=== PATIENT | male | born 1970 | race Caucasian/White ===

== ENCOUNTER → 2017-04-12 | Emergency (ER) | payer BC ==
[~2017-04-12] MED LIST: ACETAMINOPHEN 325 MG TABLET (FP) ONE; ACETAMINOPHEN 325 MG TABLET (FP) PO ONE; KETOROLAC TROMETHAMINE 30 MG/1 ML VIAL IVPUSH ONE; ONDANSETRON 4 MG/2 ML VIAL IVPUSH ONE; ONDANSETRON 4 MG/2 ML VIAL ONE; SODIUM CHLORIDE 1,000 ML IV ONE; SODIUM CHLORIDE 1,000 ML IV STA
[2017-04-12 16:08] VITALS: BMI 31.4
--- NOTE | 2017-04-12 16:22 | PDOC ---
History of Present Illness - General Chief Complaint: Pain, Acute Stated Complaint: FEVER, VOMITING Time Seen by Provider: 04/12/17 16:11 - History of Present Illness Initial Comments: 04/12/17 16:45 Patient is a 47 year old male with a history of HTN, DM, Stenting who presents with nausea and vomiting. The patient reports onset of nausea earlier this morning with 5 episodes of vomiting. He states that he was unable to tolerate PO intake with repeat nausea and vomiting. He reports associated body aches and fevers prompting his visit to the ED today. He reports that he felt previously healthy prior to this nausea and vomiting today. He denies SOB, chest pain, abdominal pain, or changes with bowel movements or urination. Past History - Past Medical History Allergies/Adverse Reactions: Allergies Allergy/AdvReac Type Severity Reaction Status Date / Time No Known Allergies Allergy Verified 04/12/17 16:03 Home Medications: Ambulatory Orders Amlodipine Besylate [Norvasc -] 2.5 mg PO DAILY 03/08/12 Clopidogrel Bisulfate [Plavix -] 75 mg PO DAILY 03/08/12 Glipizide 10 mg PO BID 03/08/12 Lisinopril [Prinivil] 10 mg PO DAILY 03/08/12 Metoprolol Tartrate [Lopressor -] 25 mg PO BID 03/08/12 Unobtainable Home Med List 0 dose .ROUTE UTDICT 03/08/12 Aspirin [ASA -] 81 mg PO DAILY #1 tab.chew 03/09/12 Simvastatin [Zocor -] 20 mg PO HS #0 tablet 03/09/12 Ondansetron HCl [Zofran] 8 mg PO Q8H PRN #14 tablet 04/12/17 Anemia: No Asthma: No Cancer: No Cardiac Disorders: Yes (4 stents) CVA: No COPD: No CHF: No Dementia: No Diabetes: Yes GI Disorders: No Disorders: No HTN: No Hypercholesterolemia: Yes Liver Disease: No Seizures: No Thyroid Disease: No - Surgical History Abdominal Surgery: No Appendectomy: No Cardiac Surgery: Yes (STENTS 2011) Cholecystectomy: No Lung Surgery: No Neurologic Surgery: No Orthopedic Surgery: No - Family Disease History Family Disease History: Diabetes: Father, Heart Disease: Father - Psycho/Social/Smoking Cessation Hx Anxiety: No Suicidal Ideation: No Smoking Status: No Smoking History: Never smoked Have you smoked in the past 12 months: No Number of Cigarettes Smoked Daily: 0 Hx Alcohol Use: No Drug/Substance Use Hx: No Substance Use Type: None Hx Substance Use Treatment: No Review of Systems - Review of Systems Constitutional: Yes: Fever. No: Chills Respiratory: No: Cough, Shortness of Breath Cardiac (ROS): No: Chest Pain, Palpitations, Chest Tightness ABD/GI: Yes: Nausea, Vomiting. No: Constipated, Diarrhea : No: Burning, Dysuria, Pain Musculoskeletal: Yes: Back Pain Integumentary: No: Rash Neurological: Yes: Headache. No: Numbness, Tingling *Physical Exam - Vital Signs Last Vital Signs Temp Pulse Resp BP Pulse Ox 99.8 F H 128 H 19 127/80 97 04/12/17 16:04 04/12/17 16:04 04/12/17 16:04 04/12/17 16:04 04/12/17 16:04 - Physical Exam Comments: 04/12/17 16:55 General Appearance: Nourished. No Apparent Distress HEENT: No Pharyngeal Erythema, Tonsillar Exudate, Tonsillar Erythema Respiratory/Chest: Lungs Clear, Normal Breath Sounds. No Crackles, Rales, Rhonchi, Wheezing Cardiovascular: Regular Rhythm, Regular Rate. No Murmur, Gallop/S3, Gallop/S4 Gastrointestinal/Abdominal: Normal Bowel Sounds, Soft, Tenderness to palpation in the lower left quadrant. No Guarding, Rebound Musculoskeletal: No CVA Tenderness Extremity: Normal Capillary Refill Integumentary: Normal Color, Dry, Warm Neurologic: Fully Oriented, Alert, Normal Mood/Affect, Normal Response Heart Score/ECG Review #1 ECG reviewed & interpreted by me at: 17:08 General ECG Interpretation: Sinus Rhythm, Normal Rate, Normal Intervals, No acute ischemic changes ED Treatment Course - LABORATORY CBC & Chemistry Diagram: 04/12/17 16:48 04/12/17 16:48 Medical Decision Making - Medical Decision Making 04/12/17 16:59 Patient is a 47 year old male with a history of HTN, DM, Stenting who presents with nausea, vomiting. Differential includes but is not limited to: Diverticulitis, Pancreatitis, Gastroenteritis, UTI. Given his history and physical exam, it is likely his symptoms are due to a viral gastritis. However it is reasonable to evaluate for other etiologies of his symptoms. We will obtain a cbc, cmp, lipase, lactate, UA, and EKG to evaluate. 04/12/17 20:39 CBC, CMP, Lipase, EKG, and UA are unremarkable. Lactate was elevated to 3.3 likely due to dehydration. We will give the patient another fluid bolus and recheck his lactate. 04/12/17 20:40 Patient's lactate is improving to 2.5 with fluids. Patient reports an improvement in his symptoms and is requesting discharge. We will PO challenge the patient and reevaluate. 04/12/17 20:49 Patient reports improvement and is requesting discharge. We discussed all the results with the patient and feel comfortable discharging the patient after a vital signs recheck. The patient is agreeable with the plan. *DC/Admit/Observation/Transfer Diagnosis at time of Disposition: Viral gastritis - Discharge Dispostion Disposition: HOME Condition at time of disposition: Improved Admit: No - Prescriptions Prescriptions: Ondansetron HCl [Zofran] 8 mg PO Q8H PRN #14 tablet PRN Reason: Nausea - Referrals Referrals: Derrek Young MD [Primary Care Provider] - - Patient Instructions Printed Discharge Instructions: DI for Viral Gastroenteritis -- Adult Additional Instructions: Please return to the ER if you experience concerning or worsening symptoms including worsening fevers, chills, or bloody stools. Please call to follow up with your primary care provider to discuss your ER visit. We will send you home with a prescription for a anti-nausea medication. - Attestations Physician Attestion: 04/12/17 20:49 I, Dr. Isidro Powell, attest that this document has been prepared under my direction and personally reviewed by me in its entirety. I further attest, that it accurately reflects all work, treatment, procedures and medical decision -making performed by me.
--- NOTE | 2017-04-12 16:38 | PDOC ---
Attending Attestation - Resident Resident Name: Isidro Powell - ED Attending Attestation I have performed the following: I have examined & evaluated the patient, The case was reviewed & discussed with the resident, I agree w/resident's findings & plan, Exceptions are as noted - HPI HPI: 04/12/17 16:38 47y M hx of htn, hl, cad s/p 4 stents presents with 1 day of nausea/vomiting that is of food contents associated with subjective fever/chills w/o associated diarrhea, abd pain, cp, sob, dysuria. no known sick contacts or travel. pt had pizza last night but no one else is sick as far as he knows. pts vitals noted for tachyardia and fever GENERAL: The patient is awake, alert, and fully oriented, Nontoxic - in no acute distress. HEAD: Normocephalic, atraumatic. EYES: extraocular movements intact, sclera anicteric, conjunctiva clear. ENT: Normal voice, dry mucous membranes. NECK: Normal range of motion, supple LUNGS: Breath sounds equal, clear to auscultation bilaterally. No wheezes, no rhonchi, no rales. HEART: tachycardia ABDOMEN: Soft, nontender, normoactive bowel sounds. No guarding, no rebound. . No CVA tenderness EXTREMITIES: Normal range of motion, no edema. No clubbing or cyanosis. No cords, erythema, or tenderness. NEUROLOGICAL: No facial assymetry, Normal speech, PSYCH: Normal mood, normal affect. SKIN: Warm, Dry, normal turgor, suspect AGE, consider psosible appendicits/diverticulitis, but no significant tenderness will obtain labs, UA, will hydrate will give zofran will reassess 04/12/17 18:57 pts labs reviewed noted for mild elevation o flipase, however symptoms are atypical of pancreatitis. pts lactic acid elevated to 3.3 will continue hydration and reassess lactic acid 04/12/17 20:47 repeat lactic acid 2.5, trending lower pt feelin gimproved able to tolerate oral intake will dc the pt with pmd fu and retur nprecautions repeat vitals normalized - Physicial Exam PE: 04/13/17 02:22 see above - Medical Decision Making 04/13/17 02:22 see above Heart Score/ECG Review - ECG Impressions Comment:: 04/12/17 17:54 Twelve-lead EKG was performed and reviewed by me. There is normal sinus rhythm with a Rate of 105 Incomplete right bundle-branch block There is normal R wave progression There are no ST or T wave abnormalities.
[2017-04-12 17:02] LABS: MCH 29.5 pg (25.7-33.7); MCHC 34.4 g/dl (32.0-35.9); MEAN CELL VOLUME 85.8 fl (80-96); MEAN PLT VOLUME 9.7 fl (7.5-11.1); PLATELET COUNT 133 K/MM3 (134-434); RDW 13.2 % (11.9-15.9); WHITE BLOOD COUNT 9.4 K/mm3 (4.0-10.0)
[2017-04-12 17:04] LABS: URINE APPEARANCE CLEAR; URINE BILIRUBIN NEGATIVE (NEGATIVE); URINE BLOOD NEGATIVE (NEGATIVE); URINE COLOR STRAW; URINE GLUCOSE (UA) 3+ (NEGATIVE); URINE KETONE 1+ (NEGATIVE); URINE LEUK ESTERASE NEGATIVE (NEGATIVE); URINE NITRITE NEGATIVE (NEGATIVE); URINE PROTEIN NEGATIVE (NEGATIVE); URINE UROBILINOGEN NEGATIVE mg/dL (0.2-1.0)
[2017-04-12 17:30] LABS: ALBUMIN 4.5 g/dl (3.4-5.0); ALK PHOS 60 U/L (45-117); ANION GAP 15 (8-16); CALCIUM 9.4 mg/dL (8.5-10.1); CO2 25 mmol/L (21-32); CREATININE 0.9 mg/dL (0.7-1.3); GLUCOSE,RANDOM 237 mg/dL (74-106); SGOT/AST 36 U/L (15-37); SGPT/ALT 78 U/L (12-78); TOT PROT 7.9 g/dl (6.4-8.2)
[2017-04-12 19:48] LABS: PLATELET ESTIMATE DECREASED (NORMAL)
[2017-04-12 21:05] VITALS: BP 119/75; PULSE 83; TEMP 98.4
--- NOTE | 2017-04-13 13:29 | EKG ---
Test Reason : Blood Pressure : / mmHG Vent. Rate : 105 BPM Atrial Rate : 105 BPM P-R Int : 138 ms QRS Dur : 094 ms QT Int : 334 ms P-R-T Axes : 021 -19 008 degrees QTc Int : 441 ms SINUS TACHYCARDIA INCOMPLETE RIGHT BUNDLE BRANCH BLOCK BORDERLINE ECG WHEN COMPARED WITH ECG OF 08-MAR-2012 10:46, INCOMPLETE RIGHT BUNDLE BRANCH BLOCK IS NOW PRESENT CLINICAL CORRELATION IS RECOMMENDED Confirmed by ALEX SALGADO, ANDRES ([id number]) on 04/13/2017 1:28:59 PM Referred By: Confirmed By:ANDRES JOHNSON MD
== END | disposition home or self-care (01) ==
LOC: JER 15:50
PROC: 3E0333Z Introduction of Anti-inflammatory into Peripheral Vein, Percutaneous Approach (ICD-10-PCS; principal; 2017-04-12)
PROC: 3E033GC Introduction of Other Therapeutic Substance into Peripheral Vein, Percutaneous Approach (ICD-10-PCS; 2017-04-12)
PROC: 3E0337Z Introduction of Electrolytic and Water Balance Substance into Peripheral Vein, Percutaneous Approach (ICD-10-PCS; 2017-04-12)
DX: A08.4 Viral intestinal infection, unspecified (principal); I10 Essential (primary) hypertension; E11.9 Type 2 diabetes mellitus without complications; E78.00 Pure hypercholesterolemia, unspecified; Z79.82 Long term (current) use of aspirin; Z95.5 Presence of coronary angioplasty implant and graft
CPT/HCPCS: 36415; 80053; 81003; 83605; 83690; 85025; 87040; 93005; 93010; 99283-25

== ENCOUNTER 2017-05-28 14:22 | Emergency (ER) | payer BC ==
[2017-05-28 14:38] VITALS: TEMP 97.5; BMI 32.1
--- NOTE | 2017-05-28 14:43 | PDOC ---
History of Present Illness - General Chief Complaint: Chest Pain Stated Complaint: CHEST PAIN Time Seen by Provider: 05/28/17 14:42 - History of Present Illness Initial Comments: 05/28/17 14:43 Mr. Andrade is a 47 yo male with a significant past medical history of DM, HTN, and 4 stents who presents to the emergency department with chest pain, head feeling "swollen," and dehydrated feeling after using 3gm of cocaine last night. He reports that he hasn't done this in a long time and that he realizes it was a bad idea. Says that he has no plains to use again. The patient denies shortness of breath and dizziness. Denies fever, chills, nausea, vomit, diarrhea and constipation. Denies dysuria, frequency, urgency and hematuria. Allergies: NKDA Past surgical history: 4 stents PMD - Young Past History - Past Medical History Allergies/Adverse Reactions: Allergies Allergy/AdvReac Type Severity Reaction Status Date / Time No Known Allergies Allergy Verified 05/28/17 14:35 Home Medications: Ambulatory Orders Amlodipine Besylate [Norvasc -] 2.5 mg PO DAILY 03/08/12 Clopidogrel Bisulfate [Plavix -] 75 mg PO DAILY 03/08/12 Glipizide 10 mg PO BID 03/08/12 Lisinopril [Prinivil] 10 mg PO DAILY 03/08/12 Metoprolol Tartrate [Lopressor -] 25 mg PO BID 03/08/12 Aspirin [ASA -] 81 mg PO DAILY #1 tab.chew 03/09/12 Simvastatin [Zocor -] 20 mg PO HS #0 tablet 03/09/12 Anemia: No Asthma: No Cancer: No Cardiac Disorders: Yes (4 stents) CVA: No COPD: No CHF: No Dementia: No Diabetes: Yes GI Disorders: No Disorders: No HTN: No Hypercholesterolemia: Yes Liver Disease: No Seizures: No Thyroid Disease: No - Surgical History Abdominal Surgery: No Appendectomy: No Cardiac Surgery: Yes (2011) Cholecystectomy: No Lung Surgery: No Neurologic Surgery: No Orthopedic Surgery: No - Family Disease History Family Disease History: Diabetes: Father, Heart Disease: Father - Suicide/Smoking/Psychosocial Hx Smoking Status: No Smoking History: Never smoked Have you smoked in the past 12 months: No Number of Cigarettes Smoked Daily: 0 Hx Alcohol Use: No Drug/Substance Use Hx: No Substance Use Type: None Hx Substance Use Treatment: No Review of Systems - Review of Systems Comments:: 05/28/17 14:43 GENERAL/CONSTITUTIONAL: No fever or chills. No weakness. HEAD, EYES, EARS, NOSE AND THROAT: +Headache with "swollen" feeling. No change in vision. No ear pain or discharge. No sore throat. CARDIOVASCULAR: +Sternal chest tightness reported. No shortness of breath RESPIRATORY: No cough, wheezing, or hemoptysis. GASTROINTESTINAL: No nausea, vomiting, diarrhea or constipation. GENITOURINARY: No dysuria, frequency, or change in urination. MUSCULOSKELETAL: No joint or muscle swelling or pain. No neck or back pain. SKIN: No rash NEUROLOGIC: No headache, vertigo, loss of consciousness, or change in strength/ sensation. ENDOCRINE: No increased thirst. No abnormal weight change HEMATOLOGIC/LYMPHATIC: No anemia, easy bleeding, or history of blood clots. ALLERGIC/IMMUNOLOGIC: No hives or skin allergy. *Physical Exam - Vital Signs Last Vital Signs Temp Pulse Resp BP Pulse Ox 97.5 F L 125 H 20 158/89 100 05/28/17 14:35 05/28/17 14:35 05/28/17 14:35 05/28/17 14:35 05/28/17 14:35 - Physical Exam Comments: 05/28/17 14:43 GENERAL: Awake, alert, and fully oriented, in no acute distress HEAD: No signs of trauma, normocephalic, atraumatic EYES: PERRLA, EOMI, sclera anicteric, conjunctiva clear ENT: Auricles normal inspection, hearing grossly normal, nares patent, oropharynx clear without exudates. Moist mucosa NECK: Normal ROM, supple, no lymphadenopathy, JVD, or masses LUNGS: No distress, speaks full sentences, clear to auscultation bilaterally HEART: Regular rate and rhythm, normal S1 and S2, no murmurs, rubs or gallops, peripheral pulses normal and equal bilaterally. ABDOMEN: Soft, nontender, normoactive bowel sounds. No guarding, no rebound. No masses EXTREMITIES: Normal inspection, Normal range of motion, no edema. No clubbing or cyanosis. NEUROLOGICAL: Cranial nerves II through XII grossly intact. Normal speech, normal gait, no focal sensorimotor deficits SKIN: Warm, Dry, normal turgor, no rashes or lesions noted. ED Treatment Course - LABORATORY CBC & Chemistry Diagram: 05/28/17 14:50 05/28/17 14:50 Medical Decision Making - Medical Decision Making 05/28/17 17:32 Patient resting comfortably after 1 L saline, says symptoms have abated. EKG/ cardiac labs/CMP/CBC as below. Discussed case with PCP Dr. Young who is comfortable with Mr. Andrade returning home with cardiac follow-up. Will D/C for home care. *DC/Admit/Observation/Transfer Diagnosis at time of Disposition: Cocaine abuse - Discharge Dispostion Disposition: HOME - Patient Instructions Printed Discharge Instructions: DI for Atypical Chest Pain
[2017-05-28] MEDS ORDERED: SODIUM CHLORIDE 1,000 ML IV STA (14:52)
--- NOTE | 2017-05-28 15:12 | PDOC ---
Attending Attestation - Resident Resident Name: Tremaine Green - ED Attending Attestation I have performed the following: I have examined & evaluated the patient, The case was reviewed & discussed with the resident, I agree w/resident's findings & plan, Exceptions are as noted - HPI HPI: 05/28/17 15:10 Cocaine Induced Chest Pain - Physicial Exam PE: VSS NAD - Medical Decision Making 05/28/17 15:[address] Green's Assessment and Plan
[2017-05-28 15:14] LABS: BASOPHIL 0.7 % (0-2.0); EOSINOPHIL 0.1 % (0-4.5); MCH 29.7 pg (25.7-33.7); MCHC 34.4 g/dl (32.0-35.9); MEAN CELL VOLUME 86.2 fl (80-96); MEAN PLT VOLUME 9.3 fl (7.5-11.1); NEUTROPHILS 76.6 % (42.8-82.8); PLATELET COUNT 159 K/MM3 (134-434); RDW 13.3 % (11.9-15.9); WHITE BLOOD COUNT 8.5 K/mm3 (4.0-10.0)
[2017-05-28 15:40] LABS: ALBUMIN 5.1 g/dl (3.4-5.0); ANION GAP 12 (8-16); CALCIUM 9.7 mg/dL (8.5-10.1); CO2 28 mmol/L (21-32); CPK 187 IU/L (39-308); CREATININE 0.9 mg/dL (0.7-1.3); SGOT/AST 19 U/L (15-37); SGPT/ALT 60 U/L (12-78)
[2017-05-28 15:43] LABS: ALK PHOS 74 U/L (45-117); BILIRUBIN,TOTAL 1.1 mg/dL (0.2-1.0); TROPONIN I < 0.02 ng/ml (0.00-0.05)
[2017-05-28 15:56] VITALS: BP 102/66; PULSE 78
[2017-05-28 16:09] LABS: GLUCOSE,RANDOM 321 mg/dL (74-106)
--- NOTE | 2017-05-28 19:55 | EKG ---
Test Reason : Blood Pressure : / mmHG Vent. Rate : 099 BPM Atrial Rate : 099 BPM P-R Int : 130 ms QRS Dur : 098 ms QT Int : 344 ms P-R-T Axes : 039 -14 019 degrees QTc Int : 441 ms NORMAL SINUS RHYTHM RSR' IN V1 LEFT ATRIAL ENLARGEMENT WHEN COMPARED WITH ECG OF 12-APR-2017 16:55, NO SIGNIFICANT CHANGE WAS FOUND REPEAT EKG IF CLINICALLY INDICATED Confirmed by FLORESITA BRAGG MD ([id number]) on 05/28/2017 7:54:58 PM Referred By: Confirmed By:FLORESITA BRAGG MD
== END 2017-05-28 17:59 | disposition home or self-care (01) ==
LOC: JER 14:22
PROC: 3E0337Z Introduction of Electrolytic and Water Balance Substance into Peripheral Vein, Percutaneous Approach (ICD-10-PCS; principal; 2017-05-28)
DX: F14.10 Cocaine abuse, uncomplicated (principal); I10 Essential (primary) hypertension; Z95.5 Presence of coronary angioplasty implant and graft
CPT/HCPCS: 36415; 80053; 82553; 84484; 85025; 93005; 93010; 99283-25

== ENCOUNTER 2019-02-19 23:52 | Emergency (ER) | payer BC ==
[2019-02-20 00:09] VITALS: BMI 29.2
[2019-02-20] MEDS ORDERED: ASPIRIN 81 MG CHEWABLE TABLETS PO ONE (01:31)
[2019-02-20] MEDS ORDERED: ASPIRIN COATED 81 MG TABLET.EC ONE (01:38)
--- NOTE | 2019-02-20 01:41 | PDOC ---
History of Present Illness - General Chief Complaint: Chest Pain Stated Complaint: SOB/CHEST PAIN Time Seen by Provider: 02/20/19 00:30 History Source: Patient, Old Records Exam Limitations: No Limitations - History of Present Illness Initial Comments: HPI: 48 y/o male presenting to [facility] ER with a chief complaint of single episode of shortness of breath while lying down at approx. 10 pm. States it was uncomfortable to take a deep breath. Endorses concurrent palpitations without chest pain. Lasted approx. 20 minutes before resolving spontaneously. 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 Is attempting to self-detox with Suboxone purchased from the street. Today was the first day with this particular batch of Suboxone. Endorses taking both Percocet and Suboxone over the course of the day. Has a h/o of developing hypertension and tachycardia with taking Suboxone. Took home amlodipine dose tonight after developing the symptoms. 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 Denies LOC, nausea/vomiting, and/or retrograde/anterograde amnesia. Headache improved after taking 2x Excedrin around 10pm. PCP: Dr. Young Social Hx: - EtOH: Denies - Tobacco: Denies - Street drugs: denies Medical Hx: - CAD s/p 4x stenting - Diabetes (Janumet, Metformin, Glipizide) - HTN - HLD Review of Systems: In addition to that documented in the HPI above, the additional ROS was obtained : Constitutional: Denies fevers or chills Head: Denies vision changes ENMT: Denies sore throat CV: Denies chest pain Resp: Per HPI. Denies coughing or sneezing. GI: Endorses vomiting x2 this AM (NB,NB). Denies diarrhea : Denies painful urination MSK: Denies recent trauma Skin: Denies new rashes Neuro: Denies new numbness or tingling or weakness Endocrine: Denies polyuria Heme: Denies bleeding or bruising Physical Examination: Constitutional: Well-developed, well-nourished adult male in no acute distress or obvious discomfort. Found semi-fowlers on hospital bed. Alert and oriented x4. Answered all questions appropriately and completely. Speech was non-labored , non-pressured. Head: Normocephalic. No obvious external signs of trauma. No bleeding. No periorbital ecchymosis or Battles sign. Eyes: Pupils 3mm and PERRL bilaterally. EOMI. No nystagmus. Sclerae white. Conjunctiva moist and not injected. Ears: Hearing grossly intact. Nose: No nasal discharge. Throat: Oral cavity and pharynx normal. No inflammation, swelling, exudate, or lesions. Neck: Supple, trachea is midline. No c-spine Cardiovascular / Chest: Borderline tachycardic rate and regular rhythm. No murmur, rubs, clicks, or gallops. Peripheral pulses: radial pulses full. Respiratory: Breathing unlabored. Equal chest rise and fall. Clear to auscultation bilaterally. No stridor, no wheezing, no rhonchi. Gastrointestinal: abdomen is soft, non-tender, non-distended. Neuro: Alert and oriented. Moving all four extremities spontaneously. No focal deficits. Cranial nerves intact. Sensation to all four extremities intact. Upper and lower extremities: proximal and distal strength 5/5. Deep Well Contractor strength 5/ 5 - equal and symmetric. Plantar flexion and dorsiflexion 5/5. No nuchal rigidity. Intact finger to nose, rapid alternating movements, and heel to hernandez. Gait normal. Skin: Warm, dry, and intact. No bruising, rashes, or other lesions. Psych: Affect: appropriate. Mood: normal. MDM: *Reviewed vital signs, nursing notes, and prior visit documentation (if available). 48 y/o male presenting for an episode of palpitations and SOB while lying down. Self resolved. Occurred in setting of mixing Percocet and Soboxone as well as taking Excedrin. Denies chest pain. Asymptomatic at the time of interview. Afebrile. Vitals unremarkable for hypotension or tachycardia. Physical exam as described above. Suspect secondary to opiate withdrawal symptoms from mixing Percocet and Soboxone combined with caffeine surge from Excedrin combined with emotional anxiety. Low suspicion for ACS, arrhythmia, pneumonia, or other pulmonary pathology. Given cardiac history, will obtain EKG, CBC, CMP, Troponin , and CXR. Headache suspected to be secondary to striking head on beam. No concerning symptoms reported. Unremarkable neurologic exam. Low suspicion for acute intracranial injury. Will not pursue imaging. Discussed with patient. CBC unremarkable for anemia or leukocytosis. CMP unremarkable for electrolyte derangement. Initial EKG unremarkable for ischemic changes. Second EKG unchanged from initial. Initial and three hour troponin not elevated. CXR unremarkable for acute cardiopulmonary pathology per ED wet read. Formal radiology report pending. No arrhythmia noted on telemetry monitoring system while pt was in the department. Pt reassessed and reports no further symptoms. Continue to have very low suspicion for ACS even in setting of cardiac history. Pt stable for discharge. Discussed imaging and laboratory results with pt. Answered all questions. Provided return precautions. Pt expressed verbal understanding and agreement with plan to discharge home with outpatient PCP and cardiology follow up. Attached copies of EKGs and lab results. Norm Bentley M.D., PGY1 Emergency Medicine Resident Past History - Past Medical History Allergies/Adverse Reactions: Allergies Allergy/AdvReac Type Severity Reaction Status Date / Time No Known Allergies Allergy Verified 02/20/19 00:08 Home Medications: Ambulatory Orders Amlodipine Besylate [Norvasc -] 2.5 mg PO DAILY 03/08/12 Glipizide 10 mg PO BID 03/08/12 Lisinopril [Prinivil] 10 mg PO DAILY 03/08/12 Aspirin [ASA -] 81 mg PO DAILY #1 tab.chew 03/09/12 Simvastatin [Zocor -] 20 mg PO HS #0 tablet 03/09/12 Metformin HCl [Glucophage] 1,000 mg PO BID 02/20/19 [place]-3 Fatty Acids/Fish Oil [Fish Oil 1,000 mg Capsule] 1 each PO BID 02/20/19 Sitagliptin Phos/Metformin HCl [Janumet 50-1,000 mg Tablet] 1 each PO BID Anemia: No Asthma: No Cancer: No Cardiac Disorders: Yes (4 stents) CVA: No COPD: No CHF: No Dementia: No Diabetes: Yes GI Disorders: No Disorders: No HTN: No Hypercholesterolemia: Yes Liver Disease: No Seizures: No Thyroid Disease: No - Surgical History Abdominal Surgery: No Appendectomy: No Cardiac Surgery: Yes (STENTS 2011) Cholecystectomy: No Lung Surgery: No Neurologic Surgery: No Orthopedic Surgery: No - Family Disease History Family Disease History: Diabetes: Father, Heart Disease: Father - Suicide/Smoking/Psychosocial Hx Smoking Status: No Smoking History: Never smoked Have you smoked in the past 12 months: No Number of Cigarettes Smoked Daily: 0 Information on smoking cessation initiated: No Hx Alcohol Use: No Drug/Substance Use Hx: No Substance Use Type: None Hx Substance Use Treatment: No *Physical Exam - Vital Signs Last Vital Signs Temp Pulse Resp BP Pulse Ox 97.4 F L 120 H 20 178/90 H 99 02/20/19 00:08 02/20/19 00:08 02/20/19 00:08 02/20/19 00:08 02/20/19 00:08 Vital Signs - Vital Signs #1 Blood Pressure: 145/78 MAP: 100 Blood Pressure Position: Sitting Pulse Rate: 96 Respiratory Rate: 18 O2 Sat by Pulse Oximetry (%): 99 Oxygen Delivery Method: Room Air ED Treatment Course - LABORATORY CBC & Chemistry Diagram: 02/20/19 01:58 02/20/19 01:58 - RADIOLOGY Radiology Studies Ordered: Category Date Time Status CHEST PA & LAT [RAD] Stat Radiology 02/20/19 01:24 Ordered *DC/Admit/Observation/Transfer Diagnosis at time of Disposition: Palpitations, Shortness of breath, Opiate misuse - Discharge Dispostion Disposition: HOME Condition at time of disposition: Good Decision to Admit order: No - Referrals Referrals: Derrek Young MD [Primary Care Provider] - - Patient Instructions Printed Discharge Instructions: DI for Palpitations Additional Instructions: You were seen today for an episode of shortness of breath with heart racing after taking Percocet, Suboxone, and Excedrin. Your EKG, blood work, and chest xray were all normal. Your symptoms are likely secondary to the medications you took tonight. Do not take Suboxone with Percocet. Try to avoid excessive caffeine intake. You can take over the counter Tylenol or Advil as needed for pain. Take as directed on the package insert. Do not exceed the recommended dosage. You should follow up with your manager in home within the next 2-3 days. You will need to call to make an appointment. A copy of todays results are attached to this packet. Take it to the appointment so your doctor can review them. You should also follow up with your primary care doctor within the next 2-3 days. You will need to call to make an appointment. The number is included in this packet. A copy of todays results are attached to this packet. Take it to the appointment so your doctor can review them. Go to the nearest emergency department if your condition worsens or you feel like you need additional emergency evaluation. Print Language: BELARUSIAN - Post Discharge Activity Forms/Work/School Notes: Back to Work
[2019-02-20] MEDS ORDERED: LACTATED RINGERS SOLUTION 1000 ML INFUS.BAG IV ONE (01:42)
[2019-02-20 02:25] LABS: BASO % 0.5 % (0-2.0); EOS % 0.8 % (0-4.5); HEMATOCRIT 39.5 % (35.4-49); HEMOGLOBIN 13.6 GM/dL (11.7-16.9); LYMPH % 21.2 % (8-40); MCH 29.4 pg (25.7-33.7); MCHC 34.4 g/dl (32.0-35.9); MEAN CELL VOLUME 85.3 fl (80-96); MEAN PLT VOLUME 8.8 fl (7.5-11.1); MONO % 8.5 % (3.8-10.2); PLATELET COUNT 135 K/MM3 (134-434); RBC 4.63 M/mm3 (4.00-5.60); RDW 12.8 % (11.9-15.9); WHITE BLOOD COUNT 5.1 K/mm3 (4.0-10.0)
[2019-02-20 02:52] LABS: ALBUMIN 4.2 g/dl (3.4-5.0); BILIRUBIN,TOTAL 0.4 mg/dL (0.2-1); BLOOD UREA NITROGEN 14.5 mg/dL (7-18); CALCIUM 9.2 mg/dL (8.5-10.1); POTASSIUM 4.3 mmol/L (3.5-5.1)
--- NOTE | 2019-02-20 03:55 | PDOC ---
Documentation entered by Liana Chino SCRIBE, acting as scribe for Neftali Yepez MD. Neftali Yepez MD: This documentation has been prepared by the brodieibMatti elizabeth Lincy, SCRIBE, under my direction and personally reviewed by me in its entirety. I confirm that the documentation accurately reflects all work, treatment, procedures, and medical decision making performed by me. Attending Attestation - Resident Resident Name: Norm Bentley - ED Attending Attestation I have performed the following: I have examined & evaluated the patient, The case was reviewed & discussed with the resident, I agree w/resident's findings & plan, Exceptions are as noted - HPI HPI: 02/20/19 01:55 The patient is a 48 year old male with a past medical history significant for HTN, HLD, CAD s/p 4 stents, DM presents to the emergency department with palpitations and shortness of breath. The patient presents with a sesnation of shortness of breath, palpitations since 10:00 pm today. The patient reports he felt like his heat rate was going up and decided to be evaluated. Denies chest pain, palpitations or pain radiating. The patient reports he is trying to self regimen himself off non-prescribed Percocet with suboxone. The patient reports he took a percocet this morning, and in the evening he took a suboxone. He endorses that he struck his head this morning when he walked into an [employer] there was no LOC there was a mild headache he denies any nausea, vomiting, vision changes, numbness, tingling, weakness, neck pain. The patient denies any exertional shortness of breath or chest pain, cough, hemoptysis, leg swelling, orthopnea. The patient does endorse taking 2 Excedrin for his headache prior to the onset of his palpitations. Allergies: NKDA Social history: Percocet, cocaine. PCP: Dr. Young - Physicial Exam PE: 02/20/19 03:04 GENERAL: The patient is awake, alert, and fully oriented, Nontoxic - in no acute distress. HEAD: Normocephalic, atraumatic. EYES: extraocular movements intact, sclera anicteric, conjunctiva clear. ENT: Normal voice, Moist mucous membranes. NECK: Normal range of motion, supple LUNGS: Breath sounds equal, clear to auscultation bilaterally. No wheezes, no rhonchi, no rales. HEART: Regular rate and rhythm, normal S1 and S2 without murmur, rub or gallop. ABDOMEN: Soft, nontender, normoactive bowel sounds. No guarding, no rebound. . No CVA tenderness EXTREMITIES: Normal range of motion, no edema. No clubbing or cyanosis. No cords, erythema, or tenderness. NEUROLOGICAL: No facial assymetry, Normal speech, PSYCH: Normal mood, normal affect. SKIN: Warm, Dry, normal turgor, - Medical Decision Making 02/20/19 03:04 Suspect that his palpitations, shortness of breath may be secondary to his caffeine use from the Excedrin. She chest pain, dyspnea on exertion. The patient was mildly tachycardic on presentation however it normalized without any therapy. We'll obtain troponin 2 to screen for ACS due to significant cardiac history. His EKG is normal here Heart Score/ECG Review - ECG Impressions Comment:: 02/20/19 03:05 Twelve-lead EKG was performed and reviewed by me. ekg eperformed at 23:48 There is normal sinus rhythm with a normal rate. Rate of 109 incomplete rbbb
[2019-02-20 06:48] VITALS: BP 121/85; PULSE 74; TEMP 98.2
--- NOTE | 2019-02-20 13:33 | EKG ---
Test Reason : Blood Pressure : / mmHG Vent. Rate : 077 BPM Atrial Rate : 077 BPM P-R Int : 128 ms QRS Dur : 088 ms QT Int : 380 ms P-R-T Axes : 000 -14 -01 degrees QTc Int : 430 ms ECTOPIC ATRIAL RHYTHM POOR DATA QUALITY, INTERPRETATION MAY BE ADVERSELY AFFECTED Confirmed by DEVANTE FLORENCE MD ([id number]) on 02/20/2019 1:33:43 PM Referred By: Confirmed By:DEVANTE FLORENCE MD
--- NOTE | 2019-02-20 13:35 | EKG ---
Test Reason : Blood Pressure : / mmHG Vent. Rate : 094 BPM Atrial Rate : 094 BPM P-R Int : 118 ms QRS Dur : 092 ms QT Int : 354 ms P-R-T Axes : 242 -17 000 degrees QTc Int : 442 ms UNUSUAL P AXIS AND SHORT MT, PROBABLE JUNCTIONAL TACHYCARDIA MINIMAL VOLTAGE CRITERIA FOR LVH, MAY BE NORMAL VARIANT ABNORMAL ECG Confirmed by DEVANTE FLORENCE MD ([id number]) on 02/20/2019 1:35:06 PM Referred By: Confirmed By:DEVANTE FLORENCE MD
--- NOTE | 2019-02-24 10:38 | EKG ---
Test Reason : Blood Pressure : / mmHG Vent. Rate : 109 BPM Atrial Rate : 109 BPM P-R Int : 180 ms QRS Dur : 100 ms QT Int : 344 ms P-R-T Axes : 048 -03 044 degrees QTc Int : 463 ms SINUS TACHYCARDIA INCOMPLETE RIGHT BUNDLE BRANCH BLOCK BORDERLINE ECG WHEN COMPARED WITH ECG OF 28-MAY-2017 14:32, NO SIGNIFICANT CHANGE WAS FOUND Confirmed by Ariel Geiger MD ([id number]) on 02/24/2019 10:38:05 AM Referred By: Confirmed By:Ariel Geiger MD
== END 2019-02-20 06:28 | disposition home or self-care (01) ==
LOC: JER 23:52
PROC: 3E0337Z Introduction of Electrolytic and Water Balance Substance into Peripheral Vein, Percutaneous Approach (ICD-10-PCS; principal; 2019-02-19)
DX: R00.2 Palpitations (principal); F11.10 Opioid abuse, uncomplicated; I25.10 Atherosclerotic heart disease of native coronary artery without angina pectoris; I10 Essential (primary) hypertension; Z95.5 Presence of coronary angioplasty implant and graft; E11.9 Type 2 diabetes mellitus without complications; Z79.84 Long term (current) use of oral hypoglycemic drugs; E78.00 Pure hypercholesterolemia, unspecified
CPT/HCPCS: 36415; 71046-TC-FY; 80053; 82550; 82553; 84484; 85025; 93005; 93010; 99284-25

== ENCOUNTER 2019-05-22 21:50 | Emergency (ER) | payer BC ==
--- NOTE | 2019-05-22 21:55 | PDOC ---
Rapid Medical Evaluation Medical Evaluation: Allergies Allergy/AdvReac Type Severity Reaction Status Date / Time No Known Allergies Allergy Verified 02/20/19 00:08 I have performed a brief in-person evaluation of this patient. The patient presents with a chief complaint of: Took 8 percocets today for back pain along with cocaine and feeling palpitations, weakness; denies vomiting, diarrhea, cp, sob; hx of HTN, DM Pertinent physical exam findings: In NAD I have ordered the following: labs, ekg The patient will proceed to the ED for further evaluation. 05/22/19 21:53 Discharge Disposition - Referrals Referrals: Drerek Young MD [Primary Care Provider] - - Patient Instructions - Post Discharge Activity
[2019-05-22 21:56] VITALS: TEMP 98.2; BMI 29.2
--- NOTE | 2019-05-22 22:12 | PDOC ---
Attending Attestation - Resident Resident Name: Radha Buck - ED Attending Attestation I have performed the following: I have examined & evaluated the patient, The case was reviewed & discussed with the resident, I agree w/resident's findings & plan - HPI HPI: 05/23/19 20:38 49 y/o/m here for increased heart rate that started around 20:00 today. He states he took 10 percocets today for chronic back pain and using 1 gram of cocaine. He's been using percs for 7 yrs and coke for the last year. He states after using cocaine he felt that his face was red and his heart was beating fast and had a headache. Patient reports a history of constipation. He denies any chest pain, SOB, excessive sweating, palpitations, changes in vision, or other symptoms. - Physicial Exam PE: 05/23/19 20:40 Agree with resident exam. Pt is stable but tachy Afebrile Appears well. - Medical Decision Making 05/23/19 20:40 Pt will be signed out to the day team; they will disposition him. 05/23/19 20:41 Due to his tachycardia/coke use/advancing age, we will check 2nd trop and if normal he may be dispositioned at that time - perhaps to go home.Detox ought to be offered to the patient.
--- NOTE | 2019-05-22 22:42 | PDOC ---
History of Present Illness - General Chief Complaint: Irregular Heart Beat Stated Complaint: Palpitations Time Seen by Provider: 05/22/19 21:52 - History of Present Illness Initial Comments: 05/22/19 22:42 49 y/o/m here for increased heart rate that started around 20:00 today. He states he took 10 percocets today for chronic back pain and using 1 gram of cocaine. He states he has been taking percocets for 7 years for back pain after an accident where a wall fell on him. He denies using cocaine for the last year until today which he used by inhaling. He states after using cocaine he felt that his face was red and his heart was beating fast and had a headache. Patient reports a history of constipation. He denies any chest pain, SOB, excessive sweating, palpitations, changes in vision, or other symptoms. PMHx: HTN, HLD, CAD s/p 4 stents, DM SHx: cardiac cath Social: daily percocet use, cocaine use, denies alcohol, tobacco, other illicit substance use Past History - Past Medical History Allergies/Adverse Reactions: Allergies Allergy/AdvReac Type Severity Reaction Status Date / Time No Known Allergies Allergy Verified 05/22/19 21:56 Home Medications: Ambulatory Orders Amlodipine Besylate [Norvasc -] 10 mg PO DAILY 03/08/12 Glipizide 10 mg PO BID 03/08/12 Aspirin [ASA -] 81 mg PO DAILY #1 tab.chew 03/09/12 [place]-3 Fatty Acids/Fish Oil [Fish Oil 1,000 mg Capsule] 1 each PO BID 02/20/19 Sitagliptin Phos/Metformin HCl [Janumet 50-1,000 mg Tablet] 1 each PO BID Atorvastatin Ca [Lipitor] 10 mg PO HS 05/22/19 Omeprazole 20 mg PO DAILY 05/22/19 Sitagliptin Phos/Metformin HCl [Janumet 50-1,000 mg Tablet] 1 tab PO BID Anemia: No Asthma: No Cancer: No Cardiac Disorders: Yes (4 stents) CVA: No COPD: No CHF: No Dementia: No Diabetes: Yes GI Disorders: No Disorders: No HTN: No Hypercholesterolemia: Yes Liver Disease: No Seizures: No Thyroid Disease: No - Surgical History Abdominal Surgery: No Appendectomy: No Cardiac Surgery: Yes (2011) Cholecystectomy: No Lung Surgery: No Neurologic Surgery: No Orthopedic Surgery: No - Family Disease History Family Disease History: Diabetes: Father, Heart Disease: Father - Suicide/Smoking/Psychosocial Hx Smoking Status: No Smoking History: Never smoked Have you smoked in the past 12 months: No Number of Cigarettes Smoked Daily: 0 Information on smoking cessation initiated: No Hx Alcohol Use: No Drug/Substance Use Hx: Yes Substance Use Type: None Hx Substance Use Treatment: No Review of Systems - Review of Systems Constitutional: No: Chills, Fever HEENTM: No: Nose Congestion Respiratory: No: Cough, Shortness of Breath Cardiac (ROS): Yes: Irregular Heart Rate. No: Chest Pain, Lightheadedness ABD/GI: No: Diarrhea, Nausea, Vomiting : No: Dysuria Musculoskeletal: Yes: Back Pain (chronic) Neurological: Yes: Headache Endocrine: No: Excessive Sweating *Physical Exam - Vital Signs Last Vital Signs Temp Pulse Resp BP Pulse Ox 98.2 F 131 H 19 152/92 100 05/22/19 21:53 05/22/19 21:53 05/22/19 21:53 05/22/19 21:53 05/22/19 21:53 - Physical Exam General Appearance: Yes: Nourished, Appropriately Dressed HEENT: positive: EOMI, MARCELL, Normal Voice, Symmetrical Neck: positive: Trachea midline, Supple Respiratory/Chest: positive: Lungs Clear, Normal Breath Sounds. negative: Accessory Muscle Use Cardiovascular: positive: Regular Rhythm, S1, S2, Tachycardia (114 bpm on exam) Gastrointestinal/Abdominal: positive: Normal Bowel Sounds, Soft Extremity: positive: Normal Capillary Refill Integumentary: positive: Normal Color Neurologic: positive: Fully Oriented, Alert, Motor Strength 5/5 ED Treatment Course - LABORATORY CBC & Chemistry Diagram: 05/22/19 23:05 05/22/19 23:05 Medical Decision Making - Medical Decision Making 05/22/19 22:50 49 y/o/m here for increased heart rate that started around 20:00 today. He states he took 10 percocets today for chronic back pain and using 1 gram of cocaine. Patient reports symptoms resolved after he arrived to the ED. Patient was here for a similar incident earlier this year. -CBC, CMP, EKG, trops, CXR ordered. -EKG reviewed: sinus tachycardia at 114bpm. No acute ischemic changes. -Will repeat second troponin to r/o ACS. -Will discharge patient if labs are normal. 05/23/19 00:21 -CBC, CMP within normal limits, elevated glucose. -Trops negative. -Will repeat trop at 0200 05/23/19 03:26 -Trop pending for disposition. Contacted lab and told that lab is having difficulties with equipment. 05/23/19 04:05 -Second trop negative, patient asymptomatic. Will discharge patient home. *DC/Admit/Observation/Transfer Diagnosis at time of Disposition: Cocaine abuse, Palpitations - Discharge Dispostion Disposition: HOME Condition at time of disposition: Improved - Referrals Referrals: Derrek Young MD [Primary Care Provider] - - Patient Instructions Printed Discharge Instructions: DI for Palpitations Additional Instructions: If you have worsening pain, shortness of breath, abdominal pain, palpitations or other concerning symptoms please return to ER. Please follow up with your primary care doctor in this week. - Post Discharge Activity
[2019-05-22] MEDS ORDERED: SODIUM CHLORIDE 0.9% 500 ML INFUS.BAG IV ONE (23:31)
[2019-05-22 23:35] LABS: BASO % 0.2 % (0-2.0); EOS % 0.1 % (0-4.5); HEMATOCRIT 41.4 % (35.4-49); HEMOGLOBIN 14.1 GM/dL (11.7-16.9); LYMPH % 10.4 % (8-40); MCH 29.2 pg (25.7-33.7); MEAN CELL VOLUME 85.8 fl (80-96); MEAN PLT VOLUME 8.9 fl (7.5-11.1); MONO % 7.1 % (3.8-10.2); NEUT % 82.2 % (42.8-82.8); PLATELET COUNT 138 K/MM3 (134-434); RBC 4.82 M/mm3 (4.00-5.60); RDW 12.8 % (11.9-15.9); WHITE BLOOD COUNT 7.5 K/mm3 (4.0-10.0)
[2019-05-22 23:56] LABS: ALBUMIN 4.5 g/dl (3.4-5.0); ALK PHOS 69 U/L (45-117); ANION GAP 9 MMOL/L (8-16); BILIRUBIN,TOTAL 0.5 mg/dL (0.2-1); CALCIUM 9.6 mg/dL (8.5-10.1); CHLORIDE 100 mmol/L (98-107); CO2 26 mmol/L (21-32); GLUCOSE,RANDOM 201 mg/dL (74-106); POTASSIUM 4.2 mmol/L (3.5-5.1); SGOT/AST 26 U/L (15-37); SGPT/ALT 63 U/L (13-61); SODIUM 136 mmol/L (136-145); TOT PROT 7.4 g/dl (6.4-8.2)
[2019-05-23 04:11] VITALS: BP 124/82; PULSE 75
--- NOTE | 2019-05-25 07:15 | EKG ---
Test Reason : Blood Pressure : / mmHG Vent. Rate : 114 BPM Atrial Rate : 114 BPM P-R Int : 130 ms QRS Dur : 094 ms QT Int : 316 ms P-R-T Axes : 040 -08 037 degrees QTc Int : 435 ms SINUS TACHYCARDIA INCOMPLETE RIGHT BUNDLE BRANCH BLOCK BORDERLINE ECG WHEN COMPARED WITH ECG OF 20-FEB-2019 05:17, NONSPECIFIC T WAVE ABNORMALITY HAS REPLACED INVERTED T WAVES IN INFERIOR LEADS Confirmed by DU SALGADO, JERAMY ([id number]) on 05/25/2019 7:14:59 AM Referred By: Confirmed By:JERAMY SANDY MD
== END 2019-05-23 04:15 | disposition home or self-care (01) ==
LOC: JER 21:50
PROC: 3E0337Z Introduction of Electrolytic and Water Balance Substance into Peripheral Vein, Percutaneous Approach (ICD-10-PCS; principal; 2019-05-22)
DX: F14.10 Cocaine abuse, uncomplicated (principal); R00.2 Palpitations; I25.10 Atherosclerotic heart disease of native coronary artery without angina pectoris; I10 Essential (primary) hypertension; Z95.5 Presence of coronary angioplasty implant and graft; E78.00 Pure hypercholesterolemia, unspecified; E11.9 Type 2 diabetes mellitus without complications; Z79.84 Long term (current) use of oral hypoglycemic drugs
CPT/HCPCS: 36415; 71045-TC-FY; 80053; 80307; 84484; 85025; 93005; 93010; 99283-25

== ENCOUNTER 2019-08-13 21:53 | Emergency (ER) | payer SELFPAY ==
[2019-08-13 22:34] VITALS: BP 138/88; PULSE 88; TEMP 98.2; BMI 29.2
[2019-08-13] MEDS ORDERED: SULFAMETHOXAZOLE/TRIMETHOPRIM 800MG/160MG D.S. TABLET PO ONE (23:33)
[2019-08-13] MEDS ORDERED: SULFAMETHOXAZOLE/TRIMETHOPRIM 800MG/160MG D.S. TABLET ONE (23:42)
--- NOTE | 2019-08-14 00:14 | PDOC ---
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 HLD, CAD s/p PCI and stent He has noted symptoms for several days he called his PMD who prescribed keflex He took Keflex today and did note improvement in the pain in his hand However he was concerned about some erythema he noted on his forearm No fevers or chills On exam Hand: 2+ RP, UP Sensation in tact Motor inact Ulnar side of the right MCP joint area is erythematous, swollen There is a central area of skin opening with surrounding palor No expressible purulence, no active drainage noted Pt forearm has several erythematous marino, non contiguous with the area of infection of the hand forearm is no warm, non tender Will do: Xray Tetanus Bactrim Keep hand elevated Pt asked to take pictures daily Return to the ER for a wound check in 48 hours Return sooner or worsening symptoms, fevers, chills Discharge - Discharge Information Problems reviewed: Yes Clinical Impression/Diagnosis: Cellulitis of hand Condition: Stable Disposition: HOME - Additional Discharge Information Prescriptions: Sulfamethoxazole/Trimethoprim [Bactrim Ds -] 1 tab PO BID #14 tablet - Follow up/Referral Referrals: Derrek Young MD [Primary Care Provider] - 2 Days - Patient Discharge Instructions Patient Printed Discharge Instructions: DI for Cellulitis -- Adult Additional Instructions: Thank you for choosing [facility]. It was a pleasure taking care of you. Please continue the Keflex You were also started on Bactrim Please monitor the site of redness Return to ER in 2 days for wound check Return to the Emergency Department if your symptoms worsen or persist, you have fever, increased redness, streaking, purulent drainage or other concerning symptoms. - Post Discharge Activity
--- NOTE | 2019-08-14 00:18 | PDOC ---
History of Present Illness - General Chief Complaint: Edema Stated Complaint: RT HAND SWOLLEN Time Seen by Provider: 08/13/19 23:05 History Source: Patient Exam Limitations: No Limitations Past History - Past Medical History Allergies/Adverse Reactions: Allergies Allergy/AdvReac Type Severity Reaction Status Date / Time No Known Allergies Allergy Verified 08/13/19 22:27 Home Medications: Ambulatory Orders Amlodipine Besylate [Norvasc -] 10 mg PO DAILY 03/08/12 Glipizide 10 mg PO BID 03/08/12 Aspirin [ASA -] 81 mg PO DAILY #1 tab.chew 03/09/12 [place]-3 Fatty Acids/Fish Oil [Fish Oil 1,000 mg Capsule] 1 each PO BID 02/20/19 Sitagliptin Phos/Metformin HCl [Janumet 50-1,000 mg Tablet] 1 each PO BID Atorvastatin Ca [Lipitor] 10 mg PO HS 05/22/19 Omeprazole 20 mg PO DAILY 05/22/19 Sitagliptin Phos/Metformin HCl [Janumet 50-1,000 mg Tablet] 1 tab PO BID Sulfamethoxazole/Trimethoprim [Bactrim Ds -] 1 tab PO BID #14 tablet 08/14/19 Anemia: No Asthma: No Cancer: No Cardiac Disorders: Yes (4 stents) CVA: No COPD: No CHF: No Dementia: No Diabetes: Yes GI Disorders: No Disorders: No HTN: No Hypercholesterolemia: Yes Liver Disease: No Seizures: No Thyroid Disease: No - Surgical History Abdominal Surgery: No Appendectomy: No Cardiac Surgery: Yes (STENTS 2011) Cholecystectomy: No Lung Surgery: No Neurologic Surgery: No Orthopedic Surgery: No - Psycho Social/Smoking Cessation Hx Smoking Status: No Smoking History: Never smoked Have you smoked in the past 12 months: No Number of Cigarettes Smoked Daily: 0 Hx Alcohol Use: No Drug/Substance Use Hx: No Substance Use Type: None Hx Substance Use Treatment: No *Physical Exam - Vital Signs Last Vital Signs Temp Pulse Resp BP Pulse Ox 98.2 F 88 16 138/88 100 08/13/19 22:28 08/13/19 22:28 08/13/19 22:28 08/13/19 22:28 08/13/19 22:28 - Physical Exam General Appearance: No: Apparent Distress Extremity: positive: Other (along ulnar aspect of R 5th digit (along MCP joint) with swelling and erythema, central area of opening, no fluctuance, no purulent drainage, no induration; some seperate erythematous marino along R forearm, but no streaking pattern noted) Integumentary: negative: Ecchymosis, Bruising Neurologic: positive: Alert ED Treatment Course - RADIOLOGY Radiology Studies Ordered: Category Date Time Status HAND- RIGHT [RAD] Stat Radiology 08/13/19 23:31 Taken - Medications Given in the ED: ED Medications Discontinued Medications Generic Name Dose Route Start Last Admin Trade Name Hilton PRN Reason Stop Dose Admin Trimethoprim/Sulfamethoxazole 1 each 08/13/19 23:33 08/13/19 23:43 Bactrim Ds - PO 08/13/19 23:34 1 each ONCE ONE Administration Medical Decision Making - Medical Decision Making 49 y/o M with hx of HTN, HLD, DM, CAD s/p PCI x4 presents with R hand infection for around a week. 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 Spoke to his PCP over the phone yesterday who prescribed him Keflex, of which he took 4 doses. He came to ED as concerned about marino along forearm (in case this was possibly streaking). Mentions the pain has improved with keflex. Denies fever. Xray neg for FB Bedside US shows no pocket of fluid Likely cellulitis (not involving fingers) No evidence of streaking (as d/w Dr. Felix) Will also add on Bactrim Will have patient return to ED in 2 days for wound check return precautions discussed 08/14/19 00:19 Discharge - Discharge Information Problems reviewed: Yes Clinical Impression/Diagnosis: Cellulitis of hand Condition: Stable Disposition: HOME - Admission No - Additional Discharge Information Prescriptions: Sulfamethoxazole/Trimethoprim [Bactrim Ds -] 1 tab PO BID #14 tablet - Follow up/Referral Referrals: Derrek Young MD [Primary Care Provider] - 2 Days - Patient Discharge Instructions Patient Printed Discharge Instructions: DI for Cellulitis -- Adult Additional Instructions: Thank you for choosing [facility]. It was a pleasure taking care of you. Please continue the Keflex You were also started on Bactrim Please monitor the site of redness Return to ER in 2 days for wound check Return to the Emergency Department if your symptoms worsen or persist, you have fever, increased redness, streaking, purulent drainage or other concerning symptoms. - Post Discharge Activity
== END 2019-08-14 00:33 | disposition home or self-care (01) ==
LOC: JER 21:53
DX: M79.641 Pain in right hand (principal); L03.113 Cellulitis of right upper limb; I10 Essential (primary) hypertension; E78.5 Hyperlipidemia, unspecified; E11.9 Type 2 diabetes mellitus without complications; I25.10 Atherosclerotic heart disease of native coronary artery without angina pectoris; Z95.5 Presence of coronary angioplasty implant and graft
CPT/HCPCS: 73130-TC-RT-FY; 99281-25

== ENCOUNTER 2024-02-02 17:55 | Observation (INO) | payer SELFPAY ==
[2024-02-02 18:01] VITALS: BMI 33.5
[2024-02-02 18:42] LABS: VENOUS BASE EXCESS -7.5 mmol/L (-2-2); VENOUS O2 SATURATION 75.2 % (70-80); VENOUS PCO2 58.9 mmHg (38-52); VENOUS PH 7.184 (7.310-7.410)
[2024-02-02 18:43] LABS: BASO % 0.5 % (0-2.0); EOS % 2.3 % (0-4.5); HEMATOCRIT 42.3 % (35.4-49); HEMOGLOBIN 14.9 GM/dL (11.7-16.9); LYMPH % 17.2 % (8-40); MCH 30.1 pg (25.7-33.7); MCHC 35.3 g/dl (32.0-35.9); MEAN CELL VOLUME 85.3 fl (80-96); MEAN PLT VOLUME 9.2 fl (7.5-11.1); MONO % 6.6 % (3.8-10.2); NEUT % 73.4 % (42.8-82.8); PLATELET COUNT 225 10^3/uL (134-434); RBC 4.96 M/mm3 (4.00-5.60); WHITE BLOOD COUNT 11.8 K/mm3 (4.0-10.0)
[2024-02-02] MEDS: LACTATED RINGERS SOLUTION 1000 ML INFUS.BAG IV ONE (18:50)
[2024-02-02 18:59] LABS: INR 0.87 (0.83-1.09); PROTHROMBIN TIME (PATIENT) 10.1 SEC (9.7-13.0)
[2024-02-02 19:02] LABS: ACTIVATED PTT 31.6 SECONDS (25.2-36.5)
[2024-02-02 19:09] LABS: CHLORIDE 96 mmol/L (98-107); POTASSIUM 3.8 mmol/L (3.5-5.1); SODIUM 129 mmol/L (136-145)
[2024-02-02 19:12] LABS: CALCIUM 8.7 mg/dL (8.5-10.1); LACTIC ACID 2.1 mmol/L (0.4-2.0)
[2024-02-02 19:13] LABS: ALBUMIN 4.2 g/dl (3.4-5.0); ANION GAP 9 mmol/L (4-13); CO2 24 mmol/L (21-32)
[2024-02-02 19:16] LABS: CREATININE 1.4 mg/dL (0.55-1.3)
[2024-02-02 19:17] LABS: BILIRUBIN,TOTAL 0.7 mg/dL (0.2-1)
[2024-02-02 19:18] LABS: ALK PHOS 156 U/L (45-117)
[2024-02-02] MEDS: SODIUM CHLORIDE 1,000 ML IV STA (19:38)
[2024-02-02] MEDS ORDERED: NALOXONE HCL 0.4 MG/ML VIAL ONE (19:41)
[2024-02-02] MEDS: NALOXONE HCL 0.4 MG/ML VIAL IVPUSH ONE (19:46)
[2024-02-02 19:48] LABS: LDL CHOLESTEROL (ONLY SJRH) 80 mg/dL (5-100)
[2024-02-02 19:50] LABS: HDL CHOLESTEROL 40 mg/dL (40-60)
[2024-02-02 20:25] LABS: BLOOD UREA NITROGEN 20.3 mg/dL (7-18); GLUCOSE,RANDOM 591 mg/dL (74-106); SGOT/AST 38 U/L (15-37); SGPT/ALT 66 U/L (13-61); TOT PROT 8.4 g/dl (6.4-8.2); URINE APPEARANCE CLEAR; URINE BILIRUBIN NEGATIVE (NEGATIVE); URINE COLOR YELLOW; URINE GLUCOSE (UA) 3+ (NEGATIVE); URINE KETONE NEGATIVE (NEGATIVE); URINE LEUK ESTERASE NEGATIVE (NEGATIVE); URINE NITRITE NEGATIVE (NEGATIVE); URINE PROTEIN NEGATIVE (NEGATIVE); URINE UROBILINOGEN 0.2 mg/dL (0.2-1.0)
[2024-02-02 20:33] LABS: OPIATES, URI NEGATIVE (NEGATIVE); URINE BARBITURATES NEGATIVE (NEGATIVE)
[2024-02-02 20:34] LABS: METHADONE, UR NEGATIVE (NEGATIVE); PHENCYCLIDINE,URINE NEGATIVE (NEGATIVE); URINE BENZODIAZEPINES NEGATIVE (NEGATIVE)
[2024-02-02 20:49] LABS: COCAINE, UR NEGATIVE (NEGATIVE); URINE AMPHETAMINES NEGATIVE (NEGATIVE)
[2024-02-02] MEDS: INSULIN (NOVOLOG) ASPART 100 UNITS/ML 10ML VIAL SQ ONE (22:46)
[2024-02-02] MEDS ORDERED: ACETAMINOPHEN INJECTION 100 ML IVPB ONE (23:49)
[2024-02-02] MEDS: ACETAMINOPHEN 1000 MG/100 ML BAG IVPB ONE (23:54)
[2024-02-03] MEDS: SODIUM CHLORIDE 1,000 ML IV SCH (01:22)
[2024-02-03] MEDS ORDERED: oxyCODONE HCL 5 MG TABLET ONE ×2 (01:45→10:16)
[2024-02-03] MEDS ORDERED: POTASSIUM CHLORIDE ORAL LIQUID 20 MEQ/15 ML ONE (01:45)
[2024-02-03] MEDS: POTASSIUM CHLORIDE ORAL LIQUID 20 MEQ/15 ML PO ONE (01:52)
[2024-02-03] MEDS: oxyCODONE HCL 5 MG TABLET PO ONE (01:52)
[2024-02-03 06:10] LABS: HEMATOCRIT 35.4 % (35.4-49); HEMOGLOBIN 12.1 GM/dL (11.7-16.9); MCH 28.9 pg (25.7-33.7); MCHC 34.1 g/dl (32.0-35.9); MEAN CELL VOLUME 84.6 fl (80-96); MEAN PLT VOLUME 8.8 fl (7.5-11.1); PLATELET COUNT 140 10^3/uL (134-434); RBC 4.19 M/mm3 (4.00-5.60); RDW 13.7 % (11.9-15.9); WHITE BLOOD COUNT 6.3 K/mm3 (4.0-10.0)
[2024-02-03 06:29] LABS: ALBUMIN 3.4 g/dl (3.4-5.0); CALCIUM 8.4 mg/dL (8.5-10.1)
[2024-02-03 06:33] LABS: CREATININE 0.8 mg/dL (0.55-1.3)
[2024-02-03 06:34] LABS: BILIRUBIN,TOTAL 0.5 mg/dL (0.2-1); TOT PROT 6.8 g/dl (6.4-8.2)
[2024-02-03] MEDS ORDERED: PANTOPRAZOLE 40 MG TABLET PO ONE (07:26)
[2024-02-03] MEDS: PANTOPRAZOLE 40 MG TABLET PO SCH (08:10)
[2024-02-03] MEDS: EMPAGLIFLOZIN (JARDIANCE) 25 MG TABLET PO SCH (08:10)
[2024-02-03] MEDS ORDERED: INSULIN (NOVOLOG) ASPART 100 UNITS/ML 10ML VIAL ONE (08:11)
[2024-02-03] MEDS: INSULIN ASPART SLIDING SCALE (NOVOLOG) 1 VIAL SQ SCH (08:15)
[2024-02-03] MEDS ORDERED: INSULIN (LEVEMIR) 100 UNITS/ML UNITS SQ ONE ×2 (09:21→09:22)
[2024-02-03 09:29] VITALS: TEMP 97.7
[2024-02-03] MEDS: ASPIRIN 81 MG CHEWABLE TABLETS PO SCH (09:29)
[2024-02-03] MEDS: INSULIN (LEVEMIR) 100 UNITS/ML UNITS SQ SCH (09:29)
[2024-02-03] MEDS: metoPROLOL SUCCINATE 25 MG TAB.SR.24H (FP) PO SCH (09:30)
[2024-02-03] MEDS: LISINOPRIL 10 MG TABLET PO SCH (09:30)
[2024-02-03] MEDS: ENOXAPARIN NA (PORCINE) 40 MG/0.4 ML DISP.SYRIN SQ SCH (09:30)
[2024-02-03 10:14] VITALS: BP 135/82; PULSE 78; RESP 18
[2024-02-03] MEDS: oxyCODONE HCL 5 MG TABLET PO PRN (10:20)
[2024-02-03] MEDS ORDERED: ATORVASTATIN CA 40 MG TABLET (FP) PO SCH (22:00)
== END 2024-02-03 10:58 | disposition home or self-care (01) ==
LOC: JER 17:55 → JERBED 20:45
PROVIDERS: ADMIT Internal Medicine; ATTEND Nurse Practitioner
CPT/HCPCS: 36415; 71045-TC-FY; 76705-TC; 80053; 80307; 81003; 82010; 82803; 82962; 83036; 83605; 83690; 83718; 83721; 83735; 84100; 84478; 84484; 85025; 85027; 85610; 85730; 86704; 86708; 86803; 87340; 87517; 93005; 93010; 99285-25; G0378; J0131